=== PATIENT | female | born 1955 | race Caucasian/White ===

== ENCOUNTER 2022-10-10 13:52 | Emergency (ER) | payer MEDICARE, SELFPAY ==
--- NOTE | 2022-10-10 13:45 | RT.EKG_ITS ---
APPROVED REPORT Exam: Resting ECG Reason for Exam: Altered mental status Patient Location: E HR:86 bpm ECG Measurements Heart Rate 86 AXIS MT 108 P 78 QRSd 84 QRS 42 QT 370 T -28 QTc 444 Conclusion Sinus rhythm...normal P axis, V-rate 60- 99 Probable left atrial enlargement...P >50mS, <-0.10mV V1 sinus rhythm, normal axis, non ischemic
[2022-10-10 13:56] VITALS: RESP 18
[2022-10-10 14:00] VITALS: BP 136/67; PULSE 89; RESP 18; O2SAT 98
--- NOTE | 2022-10-10 14:00 | DI.CT_ITS ---
Exam(s) CT HEAD WO EXAM: CT HEAD WO CLINICAL HISTORY: ams. TECHNIQUE: Imaging Protocol: Axial computed tomography images with coronal and sagittal reformatted images were created and reviewed COMPARISON: No exams were available for comparison FINDINGS: There are no skull fractures. There is no fluid in the visualized paranasal sinuses. There is no evidence of intracranial hemorrhage, mass effect, or shift of midline structures. There are no extra-axial fluid collections. The ventricles are not enlarged or shifted and there is no blo od within the ventricular system nor within the basal cisterns. IMPRESSION: No acute intracranial findings on this noninfused CT scan of the brain. Called by myself to ER. RADIATION DOSE DELIVERED: 729.75mGy.cm Total DLP DATA REPOSITORY: All CT scans at this facility are submitted to the National Radiology Data Registry (NRDR) Dose Index Registry (DIR) with the [employer] (A[employer]). RADIATION OPTIMIZATION: All CT scans at this facility use at least one of these dose optimization te chniques: automated exposure control; mA and/or kV adjustment per patient size (includes targeted exa ms where dose is matched to clinical indication); or iterative reconstruction.
[2022-10-10 14:02] VITALS: TEMP 37.1
[2022-10-10 14:19] LABS: Abs Immature Grans 0.01 10^3/uL (0.0-0.06); Absolute Basophil Count 0.05 10^3/uL (0.0-0.2); Absolute Eosinophil Count 0.02 10^3/uL (0.0-0.7); Absolute Lymphocyte Count 1.23 10^3/uL (1.2-3.4); Absolute Monocyte Count 0.51 10^3/uL (0.1-0.8); Absolute Neutrophil Count 5.47 10^3/uL (1.2-6.7); Basophils % 0.7; Eosinophils % 0.3; HCT 42.9 % (36.0-46.0); HGB 14.8 g/dL (11.2-15.7); Immature Grans % 0.1; Lymphocytes % 16.9; MCH 32.4 pg (27.0-33.0); MCHC 34.5 % (32.0-36.0); MCV 94 fL (80-95); MPV 8.1 fL (8.0-11.0); Platelet Count 296 10^3/uL (130-400); RBC 4.57 10^6/uL (3.93-5.22); RDW 11.2 % (11.7-14.6); RDW-SD 37.8 fL; WBC 7.29 10^3/uL (4.4-10.8)
--- NOTE | 2022-10-10 14:21 | ED.GENADUL_ITS ---
Discharge Plan Disposition Patient Disposition: Home Condition: Poor Discharge Details Clinical Impression: Rapidly progressive dementia, Tetrahydrocannabinol (THC) use disorder, mild, abuse ED Provider: Zoe Thacker Discharge Instructions Instructions: Dementia (ED) Additional Instructions: I am worried about your progressive confusion and dementia. I worry that your marijuana usage may be worsening this as well. Please stay at home and in contact with your friends. Do not drive. Please follow up with primary care as soon as possible next week. I have asked our care management team to assist you with home health and other social supports. Dr. Cisneros has been in contact and will be assisting in the future as well. If you develop headache, fevers, increased confusion or are thought to be unsafe at home, please return immediately to the hospital. Discharge Data Discharge Date/Time-TO BE ENTERED AT DEPARTURE: 10/10/22 19:17 Medical Decision Making <Erick Johnson NP - Last Filed: 10/11/22 09:31> Patient presenting to the emergency department for chief complaint of altered mental status. Patient was found in the [place] store and was confused. State police called EMS to transport patient to emergency department. Patient denies any acute pain or discomfort. Physical exam is unremarkable for any focal neurological findings beyond the fact that patient is oriented to person only. Blood glucose is appropriate vital signs are all stable. We will continue with altered mental status work-up given that we have no medical records on patient. ED physician interpretation for full interpretation of EKG but upon my review patient is in sinus rhythm and has no findings to suggest acute STEMI. Review of CBC is overall unremarkable nondiagnostic, CMP is also all within normal limits, negative troponin, TSH is within normal limits. Patient is not intoxicated and no alcohol detected. Patient pending urinalysis and UDS. Upon my review and radiologist interpretation patient has no acute findings on the head CT. Did speak with friend who is not in town at this time but states that patient does have intermittent confusion but she is unaware of patient's full medical history and did give me phone number patient psychiatrist Marta Meraz ([phone]) and urinalysis will contact Marta for discussion of patient's history. Patient to MARY Araya pending urinalysis and contacting patient's psychiatrist for further medical history. Spoke with [facility] patient's psychiatrist in [place], Marta Greenwood [phone]. She states that patient lives alone. Has hx of depression and dementia. She states that her short term memory has gotten worse recently. She advised that the episode today sounds more acute than typical. She advised that she 3mg Vraylar QD, Simbalta 60mg QD, Buspiron 15mg QD. No recent change in medications. Doc says that the Vraylar was recently increased to 4mg but that patient has likely not picked it up yet. States that she was last evaluated Thursday of last week. States that patient had cold-stopped her medications awhile ago but that in the last week has been taking the medications again. She advised this sudden stop was d/t change in medication dosing which was confusing for the patient. Advised very atypical to take the cat out of the house. Patient is also having work men in her home, psychiatrist wonders if this is triggering her. No family near by, close with friend Margarita that we are aware of. Spoke with patient's friend Trini who is a local friend that will be able to come and assist with continued care if needed, at least for the evening. Also reach out to Margarita, , awaiting her callback. Trini is coming to the hospital. She advised that patient has been having some short-term memory loss for several years which has been progressively worsening. However, bring her cat for a ride is atypical for the patient. Labs reviewed as noted above by Fausto Johnson. Urinalysis is significant for ketones, otherwise no evidence of UTI. She had normal bicarb, no gap, normal glucose and no findings to suggest DKA. UDS is positive for THC and patient reports that she likely used this yesterday. This could be contributing to some of her confusion, unclear at this time. Spoke with patient and her supportive friends, Trini and Margarita. Have had lengthy discussions, patient would like to trial stay at home. They will check on her frequently. Imaging Data Radiologic Study: Imaging: CT Scan Radiologist's impression: EXAM: CT HEAD WO CLINICAL HISTORY: ams. TECHNIQUE: Imaging Protocol: Axial computed tomography images with coronal and sagittal reformatted images were created and reviewed COMPARISON: No exams were available for comparison FINDINGS: There are no skull fractures. There is no fluid in the visualized paranasal sinuses. There is no evidence of intracranial hemorrhage, mass effect, or shift of midline structures. There are no extra-axial fluid collections. The ventricles are not enlarged or shifted and there is no blood within the ventricular system nor within the basal cisterns. IMPRESSION: No acute intracranial findings on this noninfused CT scan of the brain. Lab Data Lab results reviewed: Yes I reviewed the patient's lab results. <MARY Kendall - Last Filed: 10/20/22 10:03> Patient presenting to the emergency department for chief complaint of altered mental status. Patient was found in the [employer] store and was confused. State police called EMS to transport patient to emergency department. Patient denies any acute pain or discomfort. Physical exam is unremarkable for any focal neurological findings beyond the fact that patient is oriented to person only. Blood glucose is appropriate vital signs are all stable. We will continue with altered mental status work-up given that we have no medical records on patient. ED physician interpretation for full interpretation of EKG but upon my review patient is in sinus rhythm and has no findings to suggest acute STEMI. Review of CBC is overall unremarkable nondiagnostic, CMP is also all within normal limits, negative troponin, TSH is within normal limits. Patient is not intoxicated and no alcohol detected. Patient pending urinalysis and UDS. Upon my review and radiologist interpretation patient has no acute findings on the head CT. Did speak with friend who is not in town at this time but states that patient does have intermittent confusion but she is unaware of patient's full medical history and did give me phone number patient psychiatrist Marta Meraz ([phone]) and urinalysis will contact Marta for discussion of patient's history. Patient to MARY Araya pending urinalysis and contacting patient's psychiatrist for further medical history. Care transitioned to myself from Wilber Johnson NP. Please see his initial note regarding history, presentation and exam. In brief, patient is a pleasatly confused 67 year old female with hx of confusion, presenting, broughtin by EMS after being at store in [place] in a confused state. She does not remember the trip. No trauma. Afebrile. At the time I assumed care, UA and diuscussion with friends/family/psychiatrist pending. Spoke with [facility] patient's psychiatrist in [place], Marta Greenwood [phone]. She states that patient lives alone. Has hx of depression and dementia. She states that her short term memory has gotten worse recently. She advised that the episode today sounds more acute than typical. She advised that she 3mg Vraylar QD, Simbalta 60mg QD, Buspiron 15mg QD. No recent change in medications. Doc says that the Vraylar was recently increased to 4mg but that patient has likely not picked it up yet. States that she was last evaluated Thursday of last week. States that patient had cold-stopped her medications awhile ago but that in the last week has been taking the medications again. She advised this sudden stop was d/t change in medication dosing which was confusing for the patient. Advised very atypical to take the cat out of the house. Patient is also having work men in her home, psychiatrist wonders if this is triggering her. No family near by, close with friend Margarita that we are aware of. Spoke with patient's friend Trini who is a local friend that will be able to come and assist with continued care if needed, at least for the evening. Also reach out to Margarita, , awaiting her callback. Trini is coming to the hospital. She advised that patient has been having some short-term memory loss for several years which has been progressively worsening. However, bring her cat for a ride is atypical for the patient. Labs reviewed as noted above by Fausto Johnson. Urinalysis is significant for ketones, otherwise no evidence of UTI. She had normal bicarb, no gap, normal glucose and no findings to suggest DKA. UDS is positive for THC and patient reports that she likely used this yesterday. This could be contributing to some of her confusion, unclear at this time. Patient does state that she smoke frequently. Trini is now at bedside. She advised that Gricelda is largely at her baseline. States she has been rapidly declining over recent months. She does not have family locally. It is the patients wish to be home with madi cat. Friends and psychologist advised that, the cat is her life and that she will be very upset if not able to be with it. Friend can stay with her tonight. They will speak with friend group. Spoke with patient and her supportive friends, Trini and Margarita. Have had lengthy discussions, patient would like to trial stay at home. They will check on her frequently. Spoke again with her psychologist. We discussed that this ap pears to be progression from baseline disease rather than an acute issue. This is highlighted with Trini who does not feel that this is a signficant cahnge, more of a steady progression. They will all be in volved in her going home, keeping her safe with frequent check ins. She does not have her car and I advised all parties that she should not drive. If there is any concern for safety or more abrupt change, they will bring her back in. Have asked care managemnet to ensure f/u as soon as possible. Friend and her mental health team are very involved and supportive, have also offered help in this regard. All of their questions and concerns were addressed, they are in hospital for special surgery this plan. Friend is removing THC from the house. HPI <Erick Johnson NP - Last Filed: 10/11/22 09:31> General Mode of arrival: EMS . Date/Time Provider Initiated Documentation: 10/10/22 13:52 . Limitations to Documentation: no limitations . Information obtained by: patient, EMS and RN notes reviewed . History of Present Illness 67 year old F presents to the emergency department with the chief complaint of Altered mental status, Patient notes no other symptoms.. Patient did receive the following treatments prior to arrival, none General Stated Complaint: CVA/TIA BUNNY: 2 Review of Systems <Erick Johnson NP - Last Filed: 10/11/22 09:31> Constitutional Constitutional: Denies chills, Denies fatigue, Denies fever(s), Denies headache(s), Denies malaise and Denies poor appetite Eyes Eyes: Denies change in vision ENT Ears, Nose, Mouth, and Throat: Denies headache(s) Cardiovascular Cardiovascular: Denies chest pain and Denies dyspnea Respiratory Respiratory: Denies dyspnea Gastrointestinal Gastrointestinal: Denies abdominal pain Genitourinary Genitourinary: Denies dysuria and Denies urinary urgency Neurologic Neurologic: Reports as per HPI, Denies abnormal movements, Reports confusion, Denies headache(s) and Denies convulsions Psychiatric Psychiatric: Reports anxiety, Reports confusion and Reports depression Endocrine Endocrine: Denies fatigue PFSH <Erick Johnson NP - Last Filed: 10/11/22 09:31> All Active Problems (Updated 10/10/22 @ 19:00 by MARY Kendall) Rapidly progressive dementia (Acute) Tetrahydrocannabinol (THC) use disorder, mild, abuse (Acute) Social History Smoking/Tobacco Use Status: Unknown Smoking risk assessment performed?: Yes Exam <Erick Johnson NP - Last Filed: 10/11/22 09:31> Const General: cooperative, healthy appearing, no acute distress and well groomed Orientation: alert, awake and oriented x3 HENMT Head: normal to inspection Ears: hearing grossly normal bilaterally and TM's normal bilaterally Mouth: oral mucosae normal and moist mucous membranes Throat: posterior oropharynx normal Eyes Visual Pierson: normal visual pierson by confrontation Alignment and Position: alignment normal Periorbital: periorbital findings normal Eyelids: eyelids normal Sclera: sclerae normal Cornea: corneas normal Pupils: PERRL EOM: EOM intact bilaterally Neck Neck: normal visual inspection, full ROM, no lymphadenopathy and no meningeal signs Resp Effort & Inspection: normal respiratory effort and able to speak in complete sentences Auscultation: clear to auscultation bilaterally Cardio Rate: regular rate Rhythm: regular rhythm Heart Sounds: S1 normal and S2 normal Neuro General: patient alert, patient awake, oriented Patient Orientation: Person and Confused, gait normal, tone normal, moves all extremities, CN's II-XI intact bilaterally and patient confused Cognition: abnormal cognition Speech: speech normal Motor: muscle tone normal throughout, strength 5/5 throughout, no pronator drift, no movement abnormalities noted and no fasciculations Sensory Exam: no sensory deficits noted Coordination: [id number] test normal, Does not sway with eyes open, rapid alternating movement UE normal and rapid alternating movement LE normal Course <Erick Johnson NP - Last Filed: 10/11/22 09:31> Vital Signs Vital signs: Vital Signs Respiratory Rate 18 10/10/22 13:56 Temperature 37.1 C 10/10/22 14:02 Temperature Source Oral 10/10/22 14:02 Pulse 89 10/10/22 14:00 Respiratory Rate 18 10/10/22 14:00 Respiratory Effort Normal, Non-Labored 10/10/22 13:56 Respiratory Depth Normal 10/10/22 13:56 Respiratory Pattern Normal 10/10/22 13:56 Blood Pressure 136/67 10/10/22 14:00 Pulse Oximetry 98 10/10/22 14:00 Oxygen Delivery Method Room Air 10/10/22 14:00 Oxygen Flow Rate 0 10/10/22 14:00 Lab/Test Results Lab/Test Results: Laboratory Tests Range/Units 10/10/22 14:08 WBC (4.4-10.8) 10^3/uL 7.29 RBC (3.93-5.22) 10^6/uL 4.57 Hgb (11.2-15.7) g/dL 14.8 Hct (36.0-46.0) % 42.9 MCV (80-95) fL 94 MCH (27.0-33.0) pg 32.4 MCHC (32.0-36.0) % 34.5 RDW (11.7-14.6) % 11.2 L Plt Count (130-400) 10^3/uL 296 MPV (8.0-11.0) fL 8.1 Immature Gran % 0.1 Neutrophils % 75.0 Lymphocytes % 16.9 Monocytes % 7.0 Eosinophils % 0.3 Basophils % 0.7 Nucleated RBC % (0.0-0.3) % 0.0 Absolute Neutrophils (1.2-6.7) 10^3/uL 5.47 Absolute Lymphocytes (1.2-3.4) 10^3/uL 1.23 Absolute Monocytes (0.1-0.8) 10^3/uL 0.51 Absolute Eosinophils (0.0-0.7) 10^3/uL 0.02 Absolute Basophils (0.0-0.2) 10^3/uL 0.05 Sign Out <Erick Johnson NP - Last Filed: 10/11/22 09:31> Sign Out Data: Sign Out Comment: Patient pending urinalysis and further information gathering on medical history given altered mental status with no known medical history Last updated by Erick Johnson NP at 10/10/22 15:48
[2022-10-10 14:34] LABS: Ammonia 14 umol/L (11-32)
[2022-10-10 14:38] LABS: ALT 22 U/L (14-59); AST 16 U/L (15-37); Alkaline Phosphatase 52 U/L (46-116); Anion Gap 7.5 mmol/L (3-11); BUN 11 mg/dL (7-18); Bilirubin, Total 0.8 mg/dL (0.2-1.0); CO2 29.5 mmol/L (21.0-32.0); CREATININE 0.7 mg/dL (0.55-1.02); Calcium 9.2 mg/dL (8.5-10.1); Chloride 106 mmol/L (98-107); Estimated GFR 93.56 (mL/min/1.73m2); Glucose 97 mg/dL (74-106); Potassium 3.7 mmol/L (3.5-5.1); Sodium 143 mmol/L (136-145); Total Protein 6.7 g/dL (6.4-8.2)
[2022-10-10 14:50] LABS: Magnesium 2.1 mg/dL (1.8-2.4); TSH (W/Ref FT4) 1.26 uIU/mL (0.36-3.74); Troponin I < 50 ng/L (<or=60)
[2022-10-10 14:51] LABS: ETHANOL BLOOD < 3.0 mg/dL (<10)
[2022-10-10] MEDS: LORazepam 0.5 MG TAB PO (15:19)
--- NOTE | 2022-10-10 15:54 | NUR.NOTE ---
This RN called [facility] in [place] to ask about pts cat which was left behind when pt was brought to the hospital. Cat is currently at the store at this time, pts friend is trying to arrange [employer] for cat to be brought back to pts house in [place], [place]
[2022-10-10 16:54] LABS: Bilirubin Negative (Negative); Blood Negative (Negative); Clarity Clear (Clear); Glucose Negative (Negative); Ketones 15 mg/dL (Negative); Leukocyte Esterase Negative (Negative); Nitrite Negative (Negative); Specific Gravity 1.015 (1.005-1.025); Urobilinogen 0.2 mg/dL (Up to 0.2)
[2022-10-10 17:07] LABS: Tricyclic Antidepressants Negative (Negative)
[2022-10-10 17:10] LABS: *AMPHETAMINES SCREEN URINE Negative (Negative); *BARBITURATES SCREEN URINE Negative (Negative); *BENZODIAZEPINES SCREEN URINE Negative (Negative); Cannabinoids THC Positive (Negative); Cocaine Screen,Urine Negative (Negative); METHADONE URINE SCREEN Negative (Negative); OPIATES URINE SCREEN Negative (Negative)
--- NOTE | 2022-10-10 21:11 | NUR.NOTE ---
Referral made per lavonne Thacker for f/u with PCP and home health-palliative care as soon as possible as patient has dementia. Put the referral in the critical care rn's box for follow up assistance.Nursing Note:
== END 2022-10-10 19:17 | disposition home or self-care (01) ==
PROVIDERS: Nurse Practitioner Family; Emergency Provider Physician Assistant
DX: F03.90 Unspecified dementia, unspecified severity, without behavioral disturbance, psychotic disturbance, mood disturbance, and anxiety (principal); F12.10 Cannabis abuse, uncomplicated; Z79.899 Other long term (current) drug therapy
CPT/HCPCS: 36415; 80053; 80307; 93005; 99284; 70450; 80320; 81003; 82140; 83735; 84443; 84484; 85025; 93010; 99283